=== PATIENT | female | born 1955 | race Caucasian/White ===

== ENCOUNTER 2023-06-07 06:18 | Day surgery (SDC) | payer BC, MEDICARE ==
[~2023-06-07 06:18] MED LIST: Sodium Chloride 0.9% 10 ML Syringe FLUSH PRN
[2023-06-07] MEDS ORDERED: Propofol 200 MG/20 ML SDV IV ONE (06:19)
[2023-06-07] MEDS: Lactated Ringers 1,000 ML IV SCH (07:13)
[2023-06-07] MEDS: Simethicone Drops 40 MG/0.6 ML 30 ML Bottle PO ONE (07:38)
== END 2023-06-07 08:50 | disposition home or self-care (01) ==
LOC: FB.SDS 06:18
PROVIDERS: ATTEND Surgery
DX: Z12.11 Encounter for screening for malignant neoplasm of colon (principal); K62.1 Rectal polyp; M19.90 Unspecified osteoarthritis, unspecified site; Z79.899 Other long term (current) drug therapy
CPT/HCPCS: 00811; 45385; 88305; A9270; J2704; J7120